=== PATIENT | male | born 1975 | race Caucasian/White ===

== ENCOUNTER 2022-06-23 21:24 | Emergency (ER) | payer OTHER ==
[2022-06-23] MEDS ORDERED: Dexamethasone 10 MG/ML VIAL ONE (21:47)
[2022-06-23] MEDS ORDERED: cloNIDine 0.1 MG TAB ONE (21:47)
[2022-06-23] MEDS ORDERED: HYDROcodone/Acetaminophen 10/325 mg Tablet ONE (21:47)
== END 2022-06-23 22:54 | disposition home or self-care (01) ==
LOC: BURERS 21:24
DX: H10.45 Other chronic allergic conjunctivitis (principal); I10 Essential (primary) hypertension
CPT/HCPCS: 70450; 96372; J1100